=== PATIENT | female | born 1955 | race Caucasian/White ===

== ENCOUNTER 2020-05-12 08:15 | Outpatient (CLI) | payer MEDICARE, SELFPAY ==
--- NOTE | ~2020-05-12 | MM_ITS ---
EXAMINATION: MM screening [facility] BI w [place] HISTORY: Screening mammogram TECHNIQUE: Craniocaudal and mediolateral oblique 3-D tomosynthesis images were obtained and synthetic 2-D images were generated. CAD analysis was submitted and interpreted. COMPARISON: 05/09/2019, 04/27/2018, 10/29/2015 BREAST PARENCHYMAL COMPOSITION: There are scattered areas of fibroglandular density. FINDINGS: Scattered benign-appearing calcifications are present. There is no evidence of suspicious m ass, calcification, or architectural distortion to suggest malignancy in either breast. There has bee n no suspicious interval change. IMPRESSION: 1. No mammographic evidence of malignancy. 2. Recommend routine screening mammography in one year. BI-RADS Category 2: Benign finding(s). Reviewed, dictated and finalized at location A.
== END 2020-05-12 08:16 | disposition home or self-care (01) ==
PROVIDERS: PCP Family Medicine; Visit Provider Family Medicine
DX: Z12.31 Encounter for screening mammogram for malignant neoplasm of breast (principal)
CPT/HCPCS: 77063; 77067

== ENCOUNTER 2020-07-11 15:06 | Emergency (ER) | payer MEDICARE, SELFPAY ==
[2020-07-11 15:28] LABS: Add Urine Microscopic? YES; Appearance Urine Cloudy (Clear); Bilirubin Urine Negative (Negative); Blood Urine 3+ (Negative); Color Urine Yellow (Yellow); Glucose Urine UA Negative (Negative); Ketones Urine Negative (Negative); Leukocyte Esterase Ur 2+ LEU/UL (Negative); Nitrate Urine Positive (Negative); Protein Urine 2+ (Negative); pH Urine 7.5 (5.0-8.0)
[2020-07-11 15:30] VITALS: BP 157/84; PULSE 86; RESP 15; TEMP 36.9; O2SAT 99
[2020-07-11 15:41] LABS: Bacteria Urine 3+ /hpf; RBC Urine 51-75 /hpf (0-2); Squamous Epithelial Cell Urine None seen /hpf (Few); WBC Urine >75 /hpf (0-3)
--- NOTE | 2020-07-11 16:11 | ED.ABDPAIN ---
HPI - Abdominal Pain General Chief Complaint: Urogenital-Female Stated Complaint: UTI Source: patient and family Mode of arrival: ambulatory Limitations: no limitations History of Present Illness HPI narrative: Patient comes in due to dysuria for the past 6 hours, moderately severe, ongoing, not relieved by measures at home, not felt to be associated with anything. Pertinent past history: none Pain Consistency: intermittent Location: pelvis Quality: cramping Radiation: none Exacerbating factors: other (urination) Relieving factors: nothing Associated symptoms: denies other symptoms Related Data Allergies Allergy/AdvReac Type Severity Reaction Status Date / Time benzonatate [Tessalon Perles] Allergy Intermediate Unknown Verified 07/09/20 09:58 doxycycline Allergy Intermediate Unknown Verified 07/09/20 09:58 Sulfa (Sulfonamide Allergy Hives Verified 07/11/20 15:28 Antibiotics) Review of Systems Constitutional: Constitutional: Reports no additional constitutional complaints Eyes: Eyes: Reports no additional eye complaints ENT: Reports system reviewed and no additional complaints, except as documented Cardiovascular: Cardiovascular: Reports no additional cardiovascular complaints Respiratory: Respiratory: Reports no additional respiratory complaints Gastrointestinal: Gastrointestinal: Reports no additional gastrointestinal complaints Genitourinary: Genitourinary: Reports no additional female genitourinary complaints Musculoskeletal: Musculoskeletal: Reports no additional musculoskeletal complaints Integumentary/Breasts: Skin/Breast: Reports system reviewed and no additional complaints, except as docu Neurologic: Reports system reviewed and no additional complaints, except as documented Psychiatric: Psychiatric: Reports no additional psychiatric complaints Endocrine: Endocrine: Reports no additional endocrine complaints Hematologic/Lymphatic: Hematologic/Lymphatic: Reports no additional hematologic/lymphatic complaints Allergic/Immunologic: Allergic/Immunologic: Reports no additional allergic/immunologic complaints [facility] Past Medical History Medical History Abdominal pain Community acquired bacterial pneumonia Vertigo Surgical History Surgical History History of lumbar laminectomy (~02/2019) History of total right knee replacement (TKR) (~01/2013) January 2013 Family History Family History Mother Family history of diabetes mellitus in first degree relative Family history of neuropathy Sibling Family history of lung cancer Father Family history of heart disease in male family member before age 55 Other Hypertension Social History Social History Smoking status: Never smoker Alcohol intake: never Substance use: never Additional living arrangements comments: She owns a duplex. Her parents live in the attached unit, and she is their primary infant caregiver. 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 Gender identity (if verbalized by the patient): Female Exam Const: General: healthy appearing and no acute distress HENMT: Head: normal to inspection General nose exam: Normal nares present Face and sinus: normal facial exam Eyes: Conjunctivae: conjunctivae normal Neck: Neck: normal visual inspection Chest: Chest palpation & inspection: normal inspection of the chest Resp: Effort & Inspection: normal respiratory effort Auscultation: clear to auscultation bilaterally Cardio: Rate: regular rate Rhythm: regular rhythm GI: GI Palp: Yes Soft to palpation Percussion: Yes other (mild tenderness over bladder) Back/Spine/Pelvis: Back: no CVA tenderness Skin: General skin exam: normal color Neuro: General: patient oriented x3 and moves all extremities
[2020-07-11] MEDS: PHENAZOPYRIDINE HCL 100 MG TABLET 200 MG PO (16:15)
[2020-07-11] MEDS: cefTRIAXone 1 GM VIAL IM (16:15)
[2020-07-11 16:30] VITALS: RESP 17
== END 2020-07-11 16:30 | disposition home or self-care (01) ==
PROVIDERS: Emergency Provider Emergency Medicine; PCP Family Medicine
DX: N39.0 Urinary tract infection, site not specified (principal)
CPT/HCPCS: 81001; 87077; 87086; 87088; 87186; 96372; 99283; A9270; J0696

== ENCOUNTER 2020-07-21 08:43 | Outpatient (CLI) | payer MEDICARE, SELFPAY | END 2020-07-21 08:44 | disposition home or self-care (01) | PROVIDERS: PCP Family Medicine; Visit Provider Family Medicine | DX: Z53.8 Procedure and treatment not carried out for other reasons (principal) | CPT/HCPCS: 99199 ==

== ENCOUNTER 2021-02-09 15:00 | Outpatient (CLI) | payer MEDICARE, SELFPAY ==
--- NOTE | 2021-02-09 15:20 | ECG_ITS ---
Measurements Intervals Sullivan Rate: 60 P: 43 CO: 163 QRS: -20 QRSD: 93 T: 34 QT: 397 QTc: 400 Interpretive Statements SINUS RHYTHM CANNOT RULE OUT SEPTAL INFARCT, AGE INDETERMINATE ABNORMAL ECG Electronically Signed On 02-09-2021 17:06:12 CDT by Roberto Elise D.O.
== END 2021-02-09 15:01 | disposition home or self-care (01) ==
PROVIDERS: PCP Family Medicine; Visit Provider Internal Medicine Cardiovascular Disease
DX: R94.31 Abnormal electrocardiogram [ECG] [EKG] (principal)
CPT/HCPCS: 93005

== ENCOUNTER 2021-02-27 15:41 | Outpatient (CLI) | payer MEDICARE, SELFPAY ==
--- NOTE | ~2021-02-27 | XR_ITS ---
EXAMINATION: XR knee LT 3V DATE: 02/27/2021 16:47 INDICATION: Left knee pain. TECHNIQUE: 3 views of left knee were obtained. COMPARISON: None. FINDINGS: Bone alignment is normal. No fracture. There is mild osteoarthritis of medial and patellofe moral compartments. No knee joint effusion. IMPRESSION: 1. Mild left knee osteoarthritis. Reviewed, dictated and finalized at location A.
--- NOTE | ~2021-02-27 | US_ITS ---
EXAMINATION: US venous doppler [facility] DATE: 02/27/2021 16:01 INDICATION: Left lower limb pain TECHNIQUE: Pompa scale images without and with compression and Doppler images of the left lower extrem ity veins were obtained. COMPARISON: None FINDINGS: The left common femoral vein, profunda femoral vein, femoral vein, popliteal vein, peroneal trunk, posterior tibial veins, and greater saphenous vein are patent. IMPRESSION: 1. Patent left lower extremity veins. No evidence of deep venous thrombosis. Reviewed, dictated and finalized at location B.
== END 2021-02-27 15:42 | disposition home or self-care (01) ==
PROVIDERS: PCP Family Medicine; Visit Provider Family Medicine
DX: M79.605 Pain in left leg (principal)
CPT/HCPCS: 73562; 93971

== ENCOUNTER 2021-05-14 07:44 | Outpatient (CLI) | payer MEDICARE, SELFPAY ==
--- NOTE | ~2021-05-14 | MM_ITS ---
EXAMINATION: MM screening [facility] BI w [place] HISTORY: Screening mammogram TECHNIQUE: Craniocaudal and mediolateral oblique 3-D tomosynthesis images were obtained and synthetic 2-D images were generated. CAD analysis was submitted and interpreted. COMPARISON: 05/12/2020, 05/09/2019, 04/27/2018 bilateral digital screening mammogram examinations BREAST PARENCHYMAL COMPOSITION: There are scattered areas of fibroglandular density. FINDINGS: Multiple scattered bilateral benign microcalcifications are again noted. There is no eviden ce of suspicious mass, calcification, or architectural distortion to suggest malignancy in either bethanie ast. There has been no suspicious interval change. IMPRESSION: 1. No mammographic evidence of malignancy. 2. Recommend routine screening mammography in one year. BI-RADS Category 2: Benign finding(s). Reviewed, dictated and finalized at location A.
== END 2021-05-14 07:45 | disposition home or self-care (01) ==
LOC: CHSIMG 07:45
PROVIDERS: PCP Family Medicine; Visit Provider Family Medicine
DX: Z12.31 Encounter for screening mammogram for malignant neoplasm of breast (principal)
CPT/HCPCS: 77063; 77067

== ENCOUNTER 2022-05-19 08:34 | Outpatient (CLI) | payer MEDICARE, SELFPAY ==
--- NOTE | ~2022-05-19 | MM_ITS ---
EXAMINATION: MM screening [facility] w [place] HISTORY: Screening TECHNIQUE: Craniocaudal and mediolateral oblique 3-D tomosynthesis images were obtained and synthetic 2-D images were generated. CAD analysis was submitted and interpreted. COMPARISON: Comparison to multiple prior studies sequentially, with oldest reviewed study dated 02/2014. BREAST PARENCHYMAL COMPOSITION: There are scattered areas of fibroglandular density. FINDINGS: There is asymmetry of the left breast consistent with previous lumpectomy and radiation the rapy. There is no evidence of new suspicious mass, calcification, or architectural distortion to sugg est malignancy in either breast. There has been no suspicious interval change. IMPRESSION: 1. No mammographic evidence of malignancy. 2. Recommend routine screening mammography in one year. BI-RADS Category 2: Benign finding(s). Reviewed, dictated and finalized at location A.
== END 2022-05-19 08:35 | disposition home or self-care (01) ==
LOC: CHSIMG 08:35
PROVIDERS: PCP Family Medicine; Visit Provider Family Medicine
DX: Z12.31 Encounter for screening mammogram for malignant neoplasm of breast (principal)
CPT/HCPCS: 77063; 77067

== ENCOUNTER 2022-07-05 15:32 | Outpatient (CLI) | payer MEDICARE, SELFPAY ==
--- NOTE | ~2022-07-05 | XR_ITS ---
XR chest 2V DATE: 07/05/2022 15:46 INDICATION: Cough, upper back pain TECHNIQUE: PA and lateral views COMPARISON: None FINDINGS: Normal heart size. No hilar or mediastinal enlargement. There is minimal focal infiltrate or atelectasis at the right upper lobe abutting the minor fissure. There is a calcified granuloma at the left lung base. The lungs are moderately hyperinflated but otherwise clear of infiltrate or consolidation. No pleural effusion or pneumothorax. No pulmonary vascular congestion. There is diffuse osteopenia. There is thoracic dextroscoliosis and degenerative change of the cervic al and thoracic and lumbar spine. IMPRESSION: Minimal infiltrate or atelectasis, anterior segment, right upper lobe Reviewed, dictated and finalized at location A. CLOSER IMPRESSION: Minimal infiltrate or atelectasis, anterior segment, right upper lo be
== END 2022-07-05 15:33 | disposition home or self-care (01) ==
LOC: CHSIMG 15:34
PROVIDERS: PCP Family Medicine; Visit Provider Nurse Practitioner Family
DX: R05.9 Cough, unspecified (principal); R91.8 Other nonspecific abnormal finding of lung field
CPT/HCPCS: 71046

== ENCOUNTER 2022-07-21 09:55 | Outpatient (CLI) | payer MEDICARE, SELFPAY ==
[2022-07-21 10:45] LABS: Alanine Aminotransferase 18 U/L (14-59); Albumin Level 3.2 g/dL (3.4-5.0); Alkaline Phosphatase 93 U/L (46-116); Anion Gap 4 mmol/L (8-16); Aspartate Amino Transferase 14 U/L (15-37); Blood Urea Nitrogen 14 mg/dL (7-18); Calcium 8.8 mg/dL (8.5-10.1); Carbon Dioxide 33 mmol/L (21-32); Chloride 105 mmol/L (98-108); Estimated Glomerular Filt Rate 49; Glucose 114 mg/dL (70-99); Osmolality Calculated 295 mOsm/kg (285-295); Potassium 3.7 mmol/L (3.5-5.1); Sodium 142 mmol/L (136-145); Total Protein 6.4 g/dL (6.4-8.2)
[2022-07-21 11:06] LABS: Hematocrit 40.9 % (35.0-42.0); Hemoglobin 13.2 g/dL (11.7-13.8); Mean Corpuscular HGB Conc 32.3 g/dL (32.0-36.0); Mean Corpuscular Hemoglobin 28.9 pg (27.0-31.0); Mean Corpuscular Volume 89.7 fL (78.0-102.0); Mean Platelet Volume 9.9 fl (9.2-11.8); Platelet Count Result 341 K/mm3 (150-420); Red Blood Count 4.56 M/mm3 (4.20-5.40); Red Cell Distribution Width 12.8 % (11.6-14.4); White Blood Count 9.2 K/mm3 (4.8-10.8)
== END 2022-07-21 09:56 | disposition home or self-care (01) ==
LOC: CHSLAB 09:57
PROVIDERS: PCP Family Medicine; Visit Provider Family Medicine
DX: J06.9 Acute upper respiratory infection, unspecified (principal)
CPT/HCPCS: 36415; 80053; 85027

== ENCOUNTER 2022-11-22 10:32 | Outpatient (CLI) | payer MEDICARE, SELFPAY ==
--- NOTE | ~2022-11-22 | DEXA_ITS ---
Bone Density Report Name: SURJIT TAPIA Age: 67 Sex: Female Ethnicity: White Date of : 1955 Indication: postmenopausal; screening for osteoporosis; height loss; Referring Provider: Kolby Martines Study: Bone densitometry was performed. Exam Date: November 22, 2022 Accession number: [id number] Bone Density: Region BMD T-score Z-score Classification AP Spine(L1-L4) 0.747 -2.7 -0.7 Osteoporosis Femoral Neck (Left) 0.843 -0.1 1.7 Normal Total Hip (Left) 0.852 -0.7 0.7 Normal Femoral Neck (Right) 0.671 -1.6 0.1 Osteopenia Total Hip (Right) 0.846 -0.8 0.7 Normal Femoral Neck Mean 0.757 -0.8 0.9 Normal Total Hip Mean 0.849 -0.8 0.7 Normal World Health Organization criteria for BMD impression classify patients as: Normal (T-score at or above -1.0), Osteopenia (T-score between -1.0 and -2.5), or Osteoporosis (T-score at or below -2.5). 10-year Fracture Risk: FRAX not reported because: Some T-score for Spine Total or Hip Total or Femoral Neck at or below -2.5 Clinical Information Provided by Patient: Has used the following medications: Fosamax (i.e. alendronate), Vitamin D, multivitiman Patient maximum height was 64 Menopause Age: 48 No regular weight bearing exercise Drinks caffeinated beverages Onset of menses at age 10 Number of children 1 Impression: The patient has osteoporosis, based on the Total Spine T-score. Discussion: INCREASED RISK OF FRACTURE. BONE DENSITY IS UNDESIRABLY LOW AT ONE OR MORE SKELETAL SITES, CONSISTENT WITH POSTMENOPAUSAL OSTEOPOROSIS. This patient's lowest T-score meets the World Health Organization's (WHO) criteria for osteoporosis at one or more sites (T-score -2.5 or below). In untreated patients, the risk of osteoporotic fracture increases approximately two-fold for each 1.0 SD decrease in T-score. Low bone density is not the only risk factor for fracture; also consider factors such as patient's age, frailty or poor health, risk of falling, risk of injury, previous osteoporotic fracture, family history of osteoporosis, cigarette smoking, low body weight, etc. Not everyone with low bone mineral density has osteoporosis; osteomalacia and other metabolic bone disorders should also be considered. Patients who have osteoporosis should be evaluated for specific diseases and conditions (secondary causes) that may cause or contribute to bone loss. The [place] Association of Clinical Endocrinologists (AACE) and National Osteoporosis Foundation (NOF) recommend pharmacologic intervention for all postmenopausal women whose T-score is in this range. The patient should follow a healthful lifestyle (good nutrition with adequate calcium and vitamin D, and appropriate weight-bearing exercise). Follow-Up: Consider a repeat BMD and Vertebral Fracture
== END 2022-11-22 10:33 | disposition home or self-care (01) ==
LOC: CHSIMG 10:35
PROVIDERS: PCP Family Medicine; Visit Provider Family Medicine
DX: Z78.0 Asymptomatic menopausal state (principal); M81.0 Age-related osteoporosis without current pathological fracture; M85.851 Other specified disorders of bone density and structure, right thigh
CPT/HCPCS: 77080

== ENCOUNTER 2022-12-22 07:05 | Outpatient (CLI) | payer MEDICARE, SELFPAY ==
[2022-12-22 07:59] LABS: Alanine Aminotransferase 21 U/L (14-59); Albumin Level 3.6 g/dL (3.4-5.0); Alkaline Phosphatase 91 U/L (46-116); Anion Gap 9 mmol/L (8-16); Aspartate Amino Transferase 18 U/L (15-37); Bilirubin,Total 1.5 mg/dL (0.00-1.00); Blood Urea Nitrogen 8 mg/dL (7-18); Calcium 8.9 mg/dL (8.5-10.1); Carbon Dioxide 30 mmol/L (21-32); Chloride 103 mmol/L (98-108); Estimated Glomerular Filt Rate > 60; Glucose 114 mg/dL (70-99); Osmolality Calculated 293 mOsm/kg (285-295); Potassium 3.5 mmol/L (3.5-5.1); Sodium 142 mmol/L (136-145); Total Protein 6.6 g/dL (6.4-8.2)
== END 2022-12-22 07:06 | disposition home or self-care (01) ==
LOC: CHSLAB 07:07
PROVIDERS: PCP Family Medicine; Visit Provider Nurse Practitioner Family
DX: M25.559 Pain in unspecified hip (principal)
CPT/HCPCS: 36415; 80053

== ENCOUNTER 2022-12-25 06:56 | Outpatient (CLI) | payer MEDICARE, SELFPAY ==
--- NOTE | ~2022-12-25 | MR_ITS ---
EXAMINATION: MR femur RT wo/w con DATE: 12/25/2022 09:20 INDICATION: Right lateral posterior buttock pain and right thigh pain. TECHNIQUE: Magnetic resonance imaging (MRI) of the right femur was performed without and with 14 mL M ultiHance intravenous contrast. COMPARISON: None. FINDINGS: Bone alignment is normal. No fracture. Bone marrow signal intensity is normal. The musculat ure is normal. The neurovascular bundles are normal. There is no abnormal mass. IMPRESSION: 1. Normal right thigh. Reviewed, dictated and finalized at location A. IMPRESSION: 1. Normal right thigh.
--- NOTE | ~2022-12-25 | MR_ITS ---
EXAMINATION: MR hip RT wo/w con DATE: 12/25/2022 09:17 INDICATION: Right lateral posterior buttock pain. TECHNIQUE: Magnetic resonance imaging (MRI) of the right hip was performed without and with 14 mL Mul tiHance intravenous contrast. COMPARISON: CT abdomen and pelvis 06/03/2016 FINDINGS: Bone alignment is normal. No fracture. The hip joints demonstrate tiny osteophytes. Small field-of-vi ew images of right hip have low signal, and the cartilage is not well evaluated. There is moderate ri ght gluteus minimus and gluteus medius tendinopathy. The left gluteus numbness and gluteus medius ten dons are normal. There is mild tendinopathy of the hamstring origins bilaterally. The iliopsoas tendo ns are normal. There is moderate right and mild left trochanteric bursitis. IMPRESSION: 1. Moderate tendinopathy of right gluteus minimus and gluteus medius tendons. 2. Moderate right-sided trochanteric bursitis and mild left-sided trochanteric bursitis. Reviewed, dictated and finalized at location A.
== END 2022-12-25 06:57 | disposition home or self-care (01) ==
LOC: CHSIMG 06:58
PROVIDERS: PCP Family Medicine; Visit Provider Nurse Practitioner Family
DX: M25.559 Pain in unspecified hip (principal); M71.551 Other bursitis, not elsewhere classified, right hip
CPT/HCPCS: 73720; 73723; A9577

== ENCOUNTER 2023-01-03 13:21 | Outpatient (RCR) | payer MEDICARE, SELFPAY ==
--- NOTE | 2023-01-03 13:50 | PTOPEVAL1 ---
Assessment and note entered by Rylan Ward Evaluation Information Assessment Status Evaluation Diagnosis bilateral trochanteric bursitis Onset 10/30/22 Subjective Information Pt. reports that she began noticing right hip pain in mid October. 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 She describes pain in the area of the right greater trochanter and radiates down to her foot. She reports that she was doing PT at the chiropractors office in November. She reports that her pain had gotten worse with the initial therapy. She reports that she underwent MRI which revealed bursitis. She reports that pain has improved since decreasing her activity level. 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 she reports that pain is worst with sitting or laying down. she reports difficulty with sleeping on her side. 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 Reported Pain Level Pain Score 3: Self Report Assessment PT Clinical Summary Pt. is a 67 year old female who enters the clinic with bilateral trochanteric bursitis. She presents with pain, impaired postural awareness, impaired flexiblity, impaired gait and functional decline. Continued skilled PT is indicated in order to improve these areas to allow the pt. to be able to complete all IADL's with improved Plan of Care Interventions Electrical Stimulation,Gait Training,Hot Pack/Cold Pack,Manual Therapy,Mechanical Traction,Neuro Re- education,Patient/Caregiver Educati,Therapeutic Activities,Therapeutic Exercise Treatment Frequency and 2x/week x 8 visits Duration These treatments will address the objective and functional deficits as defined above. The patient will be advanced safely and appropriately in order for the patient to progress towards his/her prior level of function. Additional exercises will be introduced and as well as a comprehensive home exercise program upon discharge, if needed, ?to ensure carryover of functional gains achieved in the clinic. This treatment plan has been reviewed and agreement upon by the patient.
--- NOTE | 2023-01-03 13:50 | OPREHPOC ---
Outpatient Therapy Plan of Care This is a Multidisciplinary Plan of Care that may contain components documented by all disciplines (PT, OT, and ST.) PT Problem 1 PT Problem #1 Knowledge Deficit PT Goal 1 Goal Pt. will be independent with a HEP addressing strength and mobility Target Visit 2 PT Problem 2 PT Problem #2 Impaired Flexibility PT Goal 1 Goal Attain minimal restricition in regards to piriformis flexibility Target Visit 8 PT Problem 3 PT Problem #3 Impaired Functional Mobil PT Goal 1 Goal Pt. 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 Target Visit 8
--- NOTE | 2023-01-25 09:57 | PTOPPROGNS ---
Assessment and note entered by Jackie Stoll, PT Evaluation Information Assessment Status Progress Diagnosis bilateral trochanteric bursitis, R hip pain Onset 10/30/22 Subjective Information Lillie reports that overall her symptoms are starting to improve. She is noting less pain with laying on her side at night. She still notes catching and rubbing on the front and side of her hip when she is walking. She has been performing her exercises at home everyday and would like to reduce the frequency of her PT. Assessment PT Clinical Summary Lillie Marmolejo has completed 6 skilled PT visits for bilateral trochanteric bursitis and right hip pain. She is reporting a mild improvement overall in pain however, this has occurred after scaling exercises back. She initially was having increased pain after PT. She has been completing her HEP daily and would like to reduce the frequency of her PT. She is reporting less pain at night when she is laying on her side but she still gets catching in the right anteriolateral hip when walking. 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 She objectively demonstrates ongoing weakness in right and left gluteus medius, gluteus aleksandra, and hip flexors as well as the abdominal muscles. She has tenderness at the right greater trochanter and piriformis muscles. She will continue to benefit from skilled PT however, she will be reduced in frequency to 1 time a week every 2 weeks to progress HEP. Plan of Care Interventions Electrical Stimulation,Hot Pack/Cold Pack,Manual Therapy,Patient/Caregiver Educati,Therapeutic Activities,Therapeutic Exercise PT Services Indicated Yes Treatment Frequency and 1 time a week every 2 weeks for 4 more visits Duration These treatments will address the objective and functional deficits as defined above. The patient will be advanced safely and appropriately in order for the patient to progress towards his/her prior level of function. Additional exercises will be introduced and as well as a comprehensive home exercise program upon discharge, if needed, ?to ensure carryover of functional gains achieved in the clinic. This treatment plan has been reviewed and agreement upon by the patient.
== END 2023-02-08 20:00 | disposition home or self-care (01) ==
LOC: CHSPT 13:21
PROVIDERS: PCP Family Medicine; Visit Provider Nurse Practitioner Family
DX: M70.61 Trochanteric bursitis, right hip (principal); M70.62 Trochanteric bursitis, left hip
CPT/HCPCS: 97014; 97110; 97112; 97140; 97150; 97161; G0283

== ENCOUNTER 2023-02-21 13:15 | Outpatient (CLI) | payer MEDICARE, SELFPAY ==
--- NOTE | ~2023-02-21 | XR_ITS ---
EXAM: XR foot LT min 3V DATE: 02/21/2023 13:39 HISTORY: med, dorsal, plantar LT foot pain @ arch w/ swelling x1yr . COMPARISON: None available. FINDINGS: Decreased mineralization. No fracture or dislocation. No lytic or blastic lesion. Mild deg enerative change at the first MTP and tibiotalar joints. Moderate degenerative change at the talonavi cular articulation. Mild Achilles and moderate plantar enthesopathy No erosion or periosteal change. Soft tissues within normal limits. IMPRESSION: Polyarticular osteoarthritis of the left foot, moderate at the talonavicular articulation . Reviewed, dictated and finalized at location K. IMPRESSION: Polyarticular osteoarthritis of the left foot, moderate at the talo navicular articulation.
--- NOTE | ~2023-02-21 | XR_ITS ---
Left ankle Technique: AP, oblique, and lateral views were obtained. Clinical History: Pain Findings: No acute fracture or dislocation is seen. Osseous alignment is anatomic. Ankle mortise and other visualized joint spaces are preserved. Plantar calcaneal spur noted. Soft tissues are otherwise unremarkable. Impression: Plantar calcaneal spur, otherwise unremarkable exam. Reviewed, dictated and finalized at location . Impression: Plantar calcaneal spur, otherwise unremarkable exam.
== END 2023-02-21 13:16 | disposition home or self-care (01) ==
LOC: CHSIMG 13:16
PROVIDERS: PCP Family Medicine; Visit Provider Family Medicine
DX: M77.32 Calcaneal spur, left foot (principal); M25.572 Pain in left ankle and joints of left foot; M79.672 Pain in left foot; M19.072 Primary osteoarthritis, left ankle and foot
CPT/HCPCS: 73610; 73630

== ENCOUNTER 2023-06-01 08:50 | Outpatient (CLI) | payer MEDICARE, SELFPAY ==
--- NOTE | ~2023-06-01 | MM_ITS ---
EXAMINATION: MM screening [facility] BI w [place] HISTORY: Screening mammogram TECHNIQUE: Craniocaudal and mediolateral oblique 3-D tomosynthesis images were obtained and synthetic 2-D images were generated. CAD analysis was submitted and interpreted. COMPARISON: 05/19/2022, 05/14/2021, 05/12/2020 BREAST PARENCHYMAL COMPOSITION: There are scattered areas of fibroglandular density. FINDINGS: No suspicious mass, calcification, or architectural distortion are identified in either bethanie ast to suggest malignancy. There has been no suspicious interval change. IMPRESSION: 1. No mammographic evidence of malignancy. 2. Recommend routine screening mammography in one year. BI-RADS Category 1: Negative Reviewed, dictated and finalized at location A. 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
== END 2023-06-01 08:51 | disposition home or self-care (01) ==
LOC: CHSIMG 08:51
PROVIDERS: PCP Family Medicine; Visit Provider Family Medicine
DX: Z12.31 Encounter for screening mammogram for malignant neoplasm of breast (principal)
CPT/HCPCS: 77063; 77067

== ENCOUNTER 2023-07-26 08:18 | Emergency (ER) | payer MEDICARE, SELFPAY ==
--- NOTE | ~2023-07-26 | CT_ITS ---
Noncontrast CT scan of the left shoulder CLINICAL HISTORY: Fracture TECHNIQUE: Axial noncontrast imaging of the left shoulder was performed. Sagittal and coronal reforma tted images were constructed. Dose reduction technique was used on this scan by utilizing automated e xposure control and iterative reconstruction technique. The dose-length product (DLP) was 131.91 mGy- cm. Findings: There is an acute, mildly fracture of the anteroinferior glenoid, compatible with osseous B ankart lesion related to recent dislocation injury. No dislocation seen currently. Probable small to moderate glenohumeral joint effusion. No proximal humeral fracture seen. AC joint is intact. Soft tissue structures are grossly unremarkable for noncontrast CT scan otherwise. Visualized left jared ng is clear. IMPRESSION: Acute, mildly displaced fracture the anterior inferior glenoid, compatible with osseous Bankhart lesi on, most likely related to recent anteroinferior dislocation injury. No dislocation seen currently. Consider follow-up MR to further assess for underlying soft tissue structure injuries, as indicated. Reviewed, dictated and finalized at location . 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 No dislocation seen currently. Consider follow-up MR to further assess for underlying soft tissue structure in juries, as indicated.
--- NOTE | ~2023-07-26 | XR_ITS ---
Left Shoulder Technique: AP and scapular Y views were obtained. Clinical History: Dislocation Findings: Questionable fracture at the inferior margin of the glenoid. No dislocation seen currently. No proximal humeral fracture seen. The glenohumeral and acromioclavicular joint spaces are preserved . Soft tissues are unremarkable. Impression: Possible fracture of the inferior margin of glenoid. Consider CT and/or MR to evaluate for fracture o r underlying soft tissue injuries, respectively, as indicated. No current dislocation or proximal humeral fracture seen. 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 Consider CT and/or MR to e valuate for fracture or underlying soft tissue injuries, respectively, as indic ated. No current dislocation or proximal humeral fracture seen.
[2023-07-26 08:20] VITALS: BP 161/81; PULSE 84; RESP 19; TEMP 36.7; O2SAT 99
[2023-07-26 08:26] VITALS: BP 161/81; PULSE 84; RESP 19; TEMP 36.7; O2SAT 99
--- NOTE | 2023-07-26 08:27 | ED.UPPEXIN ---
HPI - Extremity Injury (Upper) General Chief Complaint: Extremity Injury, Upper Stated Complaint: shoulder injury Time Seen by Provider: 07/26/23 08:22 Source: patient Mode of arrival: ambulatory Limitations: no limitations History of Present Illness HPI narrative: patient is a 67-year-old female with a fall on an outstretched left arm. This is a ground level fall. She did not injure anything except her left shoulder. She heard a pop sound and tried to maneuver the shoulder however she cannot move the shoulder any further than 20?. complaint: injury to: left and shoulder Onset (ago): minute(s) (30) Other Extremity Injury: Left: shoulder Other injuries: none Place: home Severity: moderate Severity scale (1-10): 5 Relieving factors: immobilization Exacerbating factors: movement of extremity Context: fall and injury Associated symptoms: denies other symptoms Related Data Home Medications Medication Instructions Recorded Confirmed No Home Medications 07/26/23 07/26/23 Allergies Allergy/AdvReac Type Severity Reaction Status Date / Time benzonatate [Tessalon Perles] Allergy Intermediate Unknown Verified 07/26/23 08:25 doxycycline Allergy Intermediate Unknown Verified 07/26/23 08:25 Sulfa (Sulfonamide Allergy Hives Verified 07/26/23 08:25 Antibiotics) Review of Systems Review of Systems: All systems reviewed & are unremarkable except as noted in HPI and below Constitutional: Constitutional: Reports no additional constitutional complaints Eyes: Eyes: Reports no additional eye complaints ENT: Reports system reviewed and no additional complaints, except as documented Cardiovascular: Cardiovascular: Reports no additional cardiovascular complaints Respiratory: Respiratory: Reports no additional respiratory complaints Gastrointestinal: Gastrointestinal: Reports no additional gastrointestinal complaints Genitourinary: Genitourinary: Reports no additional female genitourinary complaints Musculoskeletal: Musculoskeletal: Reports no additional musculoskeletal complaints Integumentary/Breasts: Skin/Breast: Reports system reviewed and no additional complaints, except as docu Neurologic: Reports system reviewed and no additional complaints, except as documented Psychiatric: Psychiatric: Reports no additional psychiatric complaints Endocrine: Endocrine: Reports no additional endocrine complaints Hematologic/Lymphatic: Hematologic/Lymphatic: Reports no additional hematologic/lymphatic complaints Allergic/Immunologic: Allergic/Immunologic: Reports no additional allergic/immunologic complaints PMFSH Past Medical History Medical History Vertigo Surgical History Surgical History History of lumbar laminectomy (~02/2019) History of total right knee replacement History of total right knee replacement (TKR) (~01/2013) January 2013 Family History Family History Mother Family history of diabetes mellitus in first degree relative Family history of neuropathy Sibling Family history of lung cancer Father Family history of heart disease in male family member before age 55 Other Hypertension Social History Social History Smoking status: Never smoker Alcohol intake: never Substance use: never Living arrangements: with family Additional living arrangements comments: She owns a duplex. 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 Gender identity (if verbalized by the patient): Female Sexual Orientation (if Verbalized by the Patient): Straight or Heterosexual Exam Const: General: healthy appearing Nutritional Appearance: well nourished Kumar
--- NOTE | 2023-07-26 09:38 | PC.NURSE ---
PT IS SITTING IN CHAIR TALKING WITH FRIEND AT THIS TIME. PT IS TO HAVE SHOULDER IMMOBILIZER PLACED. WILL CONTINUE TO MONITOR.
--- NOTE | 2023-07-26 09:48 | PC.NURSE ---
+PMS POST SHOULDER IMMOBILIZER APPLICATION
[2023-07-26 10:00] VITALS: BP 148/78; PULSE 80; RESP 18; O2SAT 99
== END 2023-07-26 10:00 | disposition home or self-care (01) ==
PROVIDERS: Emergency Provider Emergency Medicine; PCP Family Medicine
DX: S42.142A Displaced fracture of glenoid cavity of scapula, left shoulder, initial encounter for closed fracture (principal); W18.30XA Fall on same level, unspecified, initial encounter; Y92.009 Unspecified place in unspecified non-institutional (private) residence as the place of occurrence of the external cause
CPT/HCPCS: 73030; 73200; 87556; 99284; L3670

== ENCOUNTER 2023-08-15 08:19 | Outpatient (CLI) | payer MEDICARE, SELFPAY ==
--- NOTE | ~2023-08-15 | XR_ITS ---
XR shoulder LT min 2V DATE: 08/15/2023 08:42 INDICATION: Left shoulder pain TECHNIQUE: 5 views COMPARISON: 08/03/2023 left shoulder 07/26/2023 CT left shoulder 07/26/2023 left shoulder 05/02/2018 left shoulder FINDINGS: There is a mildly displaced fracture of the anteroinferior aspect of the glenoid process of the left scapula. She was not present on 05/02/2018. No other fracture or dislocation. No periosteal reaction or bone destruction. Osteopenia. Cervical spondylosis. Degenerative spurring of the thoracic spine. Aortic arch calcification. IMPRESSION: Anteroinferior left scapular glenoid rim fracture Reviewed, dictated and finalized at location B. 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
== END 2023-08-15 08:20 | disposition home or self-care (01) ==
LOC: CHSIMG 08:21
PROVIDERS: PCP Family Medicine; Visit Provider Orthopaedic Surgery
DX: M25.512 Pain in left shoulder (principal); S42.142A Displaced fracture of glenoid cavity of scapula, left shoulder, initial encounter for closed fracture
CPT/HCPCS: 73030

== ENCOUNTER 2023-08-29 08:16 | Outpatient (CLI) | payer MEDICARE, SELFPAY ==
--- NOTE | ~2023-08-29 | XR_ITS ---
Left Shoulder Technique: AP and scapular Y views were obtained. Clinical History: Glenoid fracture COMPARISON: 08/15/2023 Findings: Fracture of the glenoid is stable in appearance as compared to prior exam. There is mild AC joint degenerative change.. The glenohumeral joint is preserved. Soft tissues are unremarkable. Impression: Stable glenoid fracture. Reviewed, dictated and finalized at location . 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
== END 2023-08-29 08:17 | disposition home or self-care (01) ==
LOC: CHSIMG 08:19
PROVIDERS: PCP Family Medicine; Visit Provider Orthopaedic Surgery
DX: S42.142A Displaced fracture of glenoid cavity of scapula, left shoulder, initial encounter for closed fracture (principal)
CPT/HCPCS: 73030

== ENCOUNTER 2023-09-05 07:43 | Outpatient (RCR) | payer MEDICARE, SELFPAY ==
[2023-09-05 08:06] VITALS: BP_SYST 113
--- NOTE | 2023-09-05 09:19 | OPREHPOC ---
Outpatient Therapy Plan of Care This is a Multidisciplinary Plan of Care that may contain components documented by all disciplines (PT, OT, and ST.) PT Problem 1 PT Problem #1 Knowledge Deficit PT Goal 1 Goal Patient to demonstrate independence with HEP Target Visit 5 PT Problem 2 PT Problem #2 Pain PT Goal 1 Goal 1. patient to report highest pain at 2/10 2. patient to report ability to sleep with no disturbance due to L shoulder pain Target Visit 10 PT Problem 3 PT Problem #3 Impaired Range of Motion PT Goal 1 Goal 1. Patient to demonstrate 160 deg of L shoulder flexion to return to reaching into cabinets 2. Patient to demonstrate reach behind back to T10 in order to complete dressing tasks Target Visit 10 PT Problem 4 PT Problem #4 Impaired Strength PT Goal 1 Goal Patient to demonstrate 4+/5 L shoulder strength to return to completing house hold tasks at PLOF Target Visit 10 PT Problem 5 PT Problem #5 Impaired Functional Mobil PT Goal 1 Goal 1. Patient to decreased QuickDash by 20% 2. Patient to report no limitations with dressing or bathing due to L shoulder pain Target Visit 10
--- NOTE | 2023-09-05 09:19 | PTOPEVAL1 ---
Assessment and note entered by Nicole Suarez DPT Evaluation Information Assessment Status Evaluation Diagnosis R shoulder pain Onset 07/26/23 Subjective Information Patient reports on 07/26/23 she fell in her living room and reached out with her R arm and dislocated her R shoulder. She reports she was in a sling for 4 weeks and has been out of the sling for 2 weeks. She had been doing exercises given to her by the MD. She feels a deep ache in her shoulder and into the L shoulder blade. She has difficulty with dressing, reaching up and out, completing house hold tasks, and fixing her hair. 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 Reported Pain Level Pain Score 2: Self Report Assessment PT Clinical Summary Ms. Marmolejo is a 68 year old female who presents to PT with L shoulder pain following dislocation. Patient demonstrates decreased L shoulder strength and ROM limiting her ability to dress, bathe, complete house hold tasks and care for her mother. She would benefit from skilled PT to address impairments and return to PLOF. Plan of Care Interventions Electrical Stimulation,Hot Pack/Cold Pack,Manual Therapy,Neuro Re-education,Patient/Caregiver Educati,Therapeutic Activities,Therapeutic Exercise PT Services Indicated Yes Treatment Frequency and 3x weekly for 6 visits and 2x weekly for 4 visits Duration for a total of 10 visits These treatments will address the objective and functional deficits as defined above. The patient will be advanced safely and appropriately in order for the patient to progress towards his/her prior level of function. Additional exercises will be introduced and as well as a comprehensive home exercise program upon discharge, if needed, ?to ensure carryover of functional gains achieved in the clinic. This treatment plan has been reviewed and agreement upon by the patient.
--- NOTE | 2023-09-12 16:26 | PCPTNOTE ---
patient cancelled due to family emergency
[2023-10-04 07:45] VITALS: BP_SYST 170
--- NOTE | 2023-10-04 08:40 | OPREHPOC ---
Outpatient Therapy Plan of Care This is a Multidisciplinary Plan of Care that may contain components documented by all disciplines (PT, OT, and ST.) PT Problem 1 PT Problem #1 Knowledge Deficit PT Goal 1 Goal Patient to demonstrate independence with HEP Target Visit 5 Progress Met PT Problem 2 PT Problem #2 Pain PT Goal 1 Goal 1. patient to report highest pain at 2/10 2. patient to report ability to sleep with no disturbance due to L shoulder pain Target Visit 18 Comment continue PT Problem 3 PT Problem #3 Impaired Range of Motion PT Goal 1 Goal 1. Patient to demonstrate 160 deg of L shoulder flexion to return to reaching into cabinets 2. Patient to demonstrate reach behind back to bra line in order to complete dressing tasks Target Visit 18 Progress Partially Met Comment 1. met, 2. upgraded PT Problem 4 PT Problem #4 Impaired Strength PT Goal 1 Goal Patient to demonstrate 4+/5 L shoulder strength to return to completing house hold tasks at PLOF Target Visit 18 Comment continue PT Problem 5 PT Problem #5 Impaired Functional Mobil PT Goal 1 Goal 1. Patient to decreased QuickDash by 20% 2. Patient to report no limitations with dressing or bathing due to L shoulder pain Target Visit 18 Progress Partially Met Comment 2. met
--- NOTE | 2023-10-04 08:40 | PTOPREEVAL ---
Assessment and note entered by Nicole Diaz DPT Evaluation Information Assessment Status Re-evaluation Diagnosis R shoulder pain Onset 07/26/23 Subjective Information patient reports she has been able dress and bathe with greater ease. she reports she continues to have difficulty with donning her bra. she also reports any lifting is difficult. she reports she is independent with HEP Reported Pain Level Pain Score 1: Self Report Assessment PT Clinical Summary Mrs. Marmolejo has been seen for 10 visits of skilled PT with great progress towards goals. She demonstrates 165 deg of shoulder flexion and 3+/5 strength of the R shoulder in flexion and abduction. She reports improved ability to perform kitchen tasks and dress but continues to have difficulty with reaching behind her back and lifting objects for home chores. She will benefit from continued skilled PT to address remaining impairments and return to PLOF. Plan of Care Interventions Electrical Stimulation,Hot Pack/Cold Pack,Manual Therapy,Neuro Re-education,Patient/Caregiver Educati,Therapeutic Activities,Therapeutic Exercise PT Services Indicated Yes Treatment Frequency and continue 2x weekly for 8 visits Duration These treatments will address the objective and functional deficits as defined above. The patient will be advanced safely and appropriately in order for the patient to progress towards his/her prior level of function. Additional exercises will be introduced and as well as a comprehensive home exercise program upon discharge, if needed, ?to ensure carryover of functional gains achieved in the clinic. This treatment plan has been reviewed and agreement upon by the patient.
[2023-11-01 08:03] VITALS: BP_SYST 170
--- NOTE | 2023-11-01 08:54 | OPREHPOC ---
Outpatient Therapy Plan of Care This is a Multidisciplinary Plan of Care that may contain components documented by all disciplines (PT, OT, and ST.) PT Problem 1 PT Problem #1 Knowledge Deficit PT Goal 1 Goal Patient to demonstrate independence with HEP Target Visit 5 Progress Met PT Problem 2 PT Problem #2 Pain PT Goal 1 Goal 1. patient to report highest pain at 2/10 2. patient to report ability to sleep with no disturbance due to L shoulder pain Target Visit 18 Progress Met Comment continue PT Problem 3 PT Problem #3 Impaired Range of Motion PT Goal 1 Goal 1. Patient to demonstrate 160 deg of L shoulder flexion to return to reaching into cabinets 2. Patient to demonstrate reach behind back to bra line in order to complete dressing tasks Target Visit 18 Progress Met Comment . PT Problem 4 PT Problem #4 Impaired Strength PT Goal 1 Goal Patient to demonstrate 4+/5 L shoulder strength to return to completing house hold tasks at PLOF Target Visit 18 Progress Met Comment . PT Problem 5 PT Problem #5 Impaired Functional Mobil PT Goal 1 Goal 1. Patient to decreased QuickDash by 20% 2. Patient to report no limitations with dressing or bathing due to L shoulder pain Target Visit 18 Progress Met Comment .
--- NOTE | 2023-11-01 08:54 | PTOPDC ---
Assessment and note entered by Nicole Diaz DPT Evaluation Information Assessment Status Discharge Diagnosis R shoulder pain Onset 07/26/23 Subjective Information Patient reports no complaints of pain. She reports her shoulder is feeling good and has been dennis to return to all previous activities and functions. She reports independence with HEP Reported Pain Level Pain Score 0: Self Report Assessment PT Clinical Summary Mrs. Marmolejo attended 18 visits of skilled PT and met all set goals. She demonstrates >160 deg of L shoulder flexion and abduction and 4+/5 L shoulder strength. She has returned to dressing and all house hold tasks at [facility]. She reports she is independent with HEP and is appropriate for DC at this time. Plan of Care PT Services Indicated No
== END 2023-11-01 20:00 | disposition home or self-care (01) ==
LOC: CHSPT 07:43
PROVIDERS: Visit Provider Orthopaedic Surgery
DX: S43.005D Unspecified dislocation of left shoulder joint, subsequent encounter (principal); S42.142D Displaced fracture of glenoid cavity of scapula, left shoulder, subsequent encounter for fracture with routine healing
CPT/HCPCS: 97014; 97110; 97112; 97140; 97150; 97161; G0283

== ENCOUNTER 2023-09-26 08:35 | Outpatient (CLI) | payer MEDICARE, SELFPAY ==
--- NOTE | ~2023-09-26 | XR_ITS ---
EXAMINATION: XR shoulder LT min 2V DATE: 09/26/2023 08:58 INDICATION: Left shoulder pain. TECHNIQUE: 3 views of left shoulder were obtained. COMPARISON: Left shoulder radiographs 08/29/2023, CT 07/26/2023 FINDINGS: Bone alignment is normal. There is a fracture of anteroinferior glenoid with up to 5 mm dis placement. There is mild osteoarthritis of glenohumeral joint and moderate osteoarthritis of acromioc lavicular joint. Calcified hilar and mediastinal lymph nodes are consistent with old granulomatous di sease. IMPRESSION: 1. Unchanged fracture of anteroinferior glenoid. 2. Polyarticular osteoarthritis. Reviewed, dictated and finalized at location A.
== END 2023-09-26 08:36 | disposition home or self-care (01) ==
LOC: CHSIMG 08:44
PROVIDERS: PCP Family Medicine; Visit Provider Orthopaedic Surgery
DX: M25.512 Pain in left shoulder (principal); M19.012 Primary osteoarthritis, left shoulder
CPT/HCPCS: 73030

== ENCOUNTER 2023-11-07 08:21 | Outpatient (CLI) | payer MEDICARE, SELFPAY ==
--- NOTE | ~2023-11-07 | XR_ITS ---
XR shoulder LT min 2V 11/07/2023 08:46 Indication: Left shoulder dislocation Procedure: 4 views left shoulder Comparison: Comparison to multiple prior studies sequentially, with oldest reviewed study dated 08/03. Findings: There is mild polyarticular osteoarthritis of the left shoulder. Small loose body at the ac romioclavicular joint. There is a healing fracture of the glenoid process. Stable alignment. Impression: 1: Stable alignment of healing glenoid process fracture. Reviewed, dictated and finalized at location B. Impression: 1: Stable alignment of healing glenoid process fracture.
== END 2023-11-07 08:22 | disposition home or self-care (01) ==
LOC: CHSIMG 08:22
PROVIDERS: PCP Family Medicine; Visit Provider Orthopaedic Surgery
DX: S42.142D Displaced fracture of glenoid cavity of scapula, left shoulder, subsequent encounter for fracture with routine healing (principal); M25.512 Pain in left shoulder
CPT/HCPCS: 73030

== ENCOUNTER 2024-02-07 01:59 | Day surgery (SDC) | payer MEDICARE, SELFPAY ==
[2024-01-25 10:27] VITALS: BMI 25.7
[2024-02-07 06:26] VITALS: BP 175/72; PULSE 60; RESP 18; TEMP 36.2; O2SAT 100; BMI 25.2
[2024-02-07] MEDS: LACTATED RINGERS 1,000 ML 150 ML IV CONT (06:34)
--- NOTE | 2024-02-07 06:38 | WPDANESEPPF ---
Anes - Initial Pre Proc Eval Procedure: Operation Date: 02/07/24 07:30 Proposed Procedures p Screening Colonoscopy - Nixon Briceño DO Date/Time: 02/07/24 06:38 Surgeon: Nixon Briceño DO Pre Op Diagnosis: Screening for malignant neoplasm of colon Patient Data Age: 68 Gender: F Height: 1.63 m Weight: 66.7 kg Last Vital Signs Temp 36.2 C L 02/07/24 06:26 Pulse 60 02/07/24 06:26 Resp 18 02/07/24 06:26 BP 175/72 H 02/07/24 06:26 Pulse Ox 100 02/07/24 06:26 O2 Del Method Room Air 02/07/24 06:26 Allergies Allergy/AdvReac Type Severity Reaction Status Date / Time benzonatate [Tessalon Perles] Allergy Intermediate Unknown Verified 02/07/24 06:25 doxycycline Allergy Intermediate Unknown Verified 02/07/24 06:25 Sulfa (Sulfonamide Allergy Hives Verified 02/07/24 06:25 Antibiotics) hydrocodone AdvReac Nausea and Verified 02/07/24 06:25 Vomiting morphine AdvReac Nausea and Verified 02/07/24 06:25 Vomiting oxycodone AdvReac Nausea and Verified 02/07/24 06:25 Vomiting Home Medications Medication Instructions Recorded Confirmed Type sertraline 50 mg tablet 50 mg PO DAILY #90 tabs 11/08/23 02/07/24 Rx Patient hx anesthesia problems: none Family hx anesthesia problems: none Results Review: All pre-operative results and documents have been reviewed as part of the pre-operative evaluation. [facility] Past Medical History Medical History Dislocation of left shoulder joint Fracture of glenoid process of left scapula Vertigo Surgical History Surgical History History of lumbar laminectomy (~02/2019) History of total right knee replacement History of total right knee replacement (TKR) (~01/2013) January 2013 Family History Family History Mother Family history of diabetes mellitus in first degree relative Family history of neuropathy Sibling Family history of lung cancer Father Family history of heart disease in male family member before age 55 Other Hypertension Social History Social History Social History: coffee in A.M only Smoking status: Never smoker Alcohol intake: never Substance use: never Substance use type: does not use Living arrangements: with family Additional living arrangements comments: She owns a duplex. 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 Gender identity (if verbalized by the patient): Female Sexual Orientation (if Verbalized by the Patient): Straight or Heterosexual Spiritual care concerns: No Anes - Eval Final PreProcedure Day of Procedure 02/07/24 06:38 Patient weight: normal Heart: regular rate and rhythm Lungs: clear to auscultation Airway: Mallampati scale class II Neurological: alert and oriented Last oral intake: >/= 8 hours ASA classification: II Emergent: no Anesthetic plan: proceed Anesthesia type and monitoring: general GIVS and standard monitoring Results Review: All pre-operative results and documents have been reviewed as part of the pre-operative evaluation. Informed Consent: The patient's anesthetic plan and its attendant risks and benefits were discussed with the patient/family/POA. Questions were solicited and answers provided to the satisfaction of the patient/family/POA.
--- NOTE | 2024-02-07 07:30 | PM.IMHP ---
H&P: HPI History of Present Illness Date/Time: 02/07/24 07:30 Chief Complaint: Screening for colorectal cancer Narrative: this is a 68-year-old woman who presents for colonoscopy. She denies any hematochezia or melena. She denies any family history of colon cancer. Review of Systems Review of Systems: All systems reviewed & are unremarkable except as noted in HPI and below Constitutional: Constitutional: Denies chills, Denies fever(s), Denies headache(s) and Denies weight loss Eyes: Eyes: Denies change in vision ENT: Denies dizziness, Denies headache(s), Denies neck mass and Denies throat swelling Cardiovascular: Cardiovascular: Denies chest pain, Denies lightheadedness and Denies dyspnea Respiratory: Respiratory: Denies cough, Denies dyspnea and Denies wheezing Gastrointestinal: Gastrointestinal: Denies abdominal pain, Denies change in bowel habits, Denies nausea and Denies vomiting Genitourinary: Genitourinary: Denies hematuria and Denies dysuria Musculoskeletal: Musculoskeletal: Reports as per HPI Integumentary/Breasts: Skin/Breast: Reports as per HPI Neurologic: Denies dizziness and Denies headache(s) Allergic/Immunologic: Allergic/Immunologic: Denies throat swelling and Denies wheezing PMFSH Past Medical History Medical History Dislocation of left shoulder joint Fracture of glenoid process of left scapula Vertigo Surgical History Surgical History History of lumbar laminectomy (~02/2019) History of total right knee replacement History of total right knee replacement (TKR) (~01/2013) January 2013 Family History Family History Mother Family history of diabetes mellitus in first degree relative Family history of neuropathy Sibling Family history of lung cancer Father Family history of heart disease in male family member before age 55 Other Hypertension Social History Social History Social History: coffee in A.M only Smoking status: Never smoker Alcohol intake: never Substance use: never Substance use type: does not use Living arrangements: with family Additional living arrangements comments: She owns a duplex. Her parents live in the attached unit, and she is their primary patient care. 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 Gender identity (if verbalized by the patient): Female Sexual Orientation (if Verbalized by the Patient): Straight or Heterosexual Spiritual care concerns: No Meds Home Medications and Allergies Home Medications Medication Instructions Recorded Confirmed Type sertraline 50 mg tablet 50 mg PO DAILY #90 tabs 11/08/23 02/07/24 Rx Allergies Allergy/AdvReac Type Severity Reaction Status Date / Time benzonatate [Tessalon Perles] Allergy Intermediate Unknown Verified 02/07/24 06:25 doxycycline Allergy Intermediate Unknown Verified 02/07/24 06:25 Sulfa (Sulfonamide Allergy Hives Verified 02/07/24 06:25 Antibiotics) hydrocodone AdvReac Nausea and Verified 02/07/24 06:25 Vomiting morphine AdvReac Nausea and Verified 02/07/24 06:25 Vomiting oxycodone AdvReac Nausea and Verified 02/07/24 06:25 Vomiting Vital Signs Vital Signs - 24 hr 02/07/24 06:26 Temperature 36.2 C L Pulse Rate 60 Respiratory Rate 18 Blood Pressure 175/72 H Pulse Oximetry 100 Oxygen Delivery Room Air Exam Const: General: no acute distress and alert Orientation/consciousness: patient oriented x3 HENMT: Head: normocephalic and atraumatic Ears: hearing grossly normal bilaterally Face/Nose/Sinus: Normal nares present Mouth: Yes Normal oral and palatal mucosa present Eyes: Periorbital: periorbital findings normal Sclera: sclerae normal EOM: EOMs intact bilater
[2024-02-07 07:53] VITALS: BP 136/79; PULSE 64; RESP 17; O2SAT 100
[2024-02-07 08:03] VITALS: BP 154/63; PULSE 97; RESP 21; O2SAT 95
[2024-02-07 08:13] VITALS: BP 160/85; PULSE 58; RESP 21; O2SAT 100
== END 2024-02-07 08:26 | disposition home or self-care (01) ==
PROVIDERS: PCP Family Medicine; Visit Provider Surgery
PROC: 0DJD8ZZ Inspection of Lower Intestinal Tract, Via Natural or Artificial Opening Endoscopic (ICD-10-PCS; CPT 45378; principal; 2024-02-07 07:30)
DX: Z12.11 Encounter for screening for malignant neoplasm of colon (principal)
CPT/HCPCS: G0121; J7120

== ENCOUNTER 2024-06-06 14:25 | Outpatient (CLI) | payer MEDICARE, SELFPAY ==
--- NOTE | ~2024-06-06 | MM_ITS ---
EXAMINATION: MM screening [facility] BI [place] HISTORY: Screening mammogram TECHNIQUE: Craniocaudal and mediolateral oblique 3-D tomosynthesis images were obtained and synthetic 2-D images were generated. CAD analysis was submitted and interpreted. COMPARISON: 06/01/2023, 05/19/2022, 05/14/2021, 05/12/2020 BREAST PARENCHYMAL COMPOSITION:Not Dense. The breasts are almost entirely fatty FINDINGS: No suspicious mass, calcification, or architectural distortion are identified in either bethanie ast to suggest malignancy. There has been no suspicious interval change. IMPRESSION: No mammographic evidence of malignancy. Recommend routine screening mammography in one year. BI-RADS Category 1: Negative Reviewed, dictated and finalized at location . ACCOUNT COORDINATOR
== END 2024-06-06 14:26 | disposition home or self-care (01) ==
LOC: CHSIMG 14:25
PROVIDERS: PCP Nurse Practitioner Family; Visit Provider Family Medicine
DX: Z12.31 Encounter for screening mammogram for malignant neoplasm of breast (principal)
CPT/HCPCS: 77063; 77067

== ENCOUNTER 2024-09-05 09:41 | Outpatient (CLI) | payer MEDICARE, SELFPAY ==
--- OUTSIDE RECORDS SUMMARY | 2024-09-05 09:48 | XMS_ITS | Continuity of Care Document ---
Author Organization [facility] Address [address] [facility] [address] [place] [address] Phone Care Team Providers Care Ski Patroller Name Role Phone Isac Galicia MD, FACS Unavailable Unavailab le Allergies, Adverse Reactions, Alerts Substance Reaction Status Criticality No Known allergies Medications Medication Instructions Dosage Effective Dates (start - stop) Status Comments Naproxen Sodium 220 mg Tab take 1 tablet (220MG) by ORAL route every 12 hours as needed 220 MG - Active Procedures Procedure Date Office/outpatient Visit, [facility] Advance Directives Directive Yes / No [...] Providers Copied on Encounter Office/outpat ient Visit, [facility], [id number] [place] [address] [employer] [address], [place], [place], [id number], [place] tel:[phone] SEC Jak Garcia blurry vision (chief complaint) [employer] [address], [address], [place], [place], [address], [place]. tel:[phone] Referring Provider: Dilip Snyder OD A, [address] [facility] Eye [facility], [place], [address]. tel:[phone] [facility], [address] [employer] [address], [place], [place], [id number], [place] tel:[phone] SEC Jak Garcia No Information [phone], [address], [place], [place], [address], [place]. tel:[phone] Family History Family Member Type Diagnosis Age At Onset Problem (finding) Mother Problem (finding) diabetes melli tus in first degree relative Payers Payer name Insurance type Covered democrat ID Authoriza tion(s) No Information Social History Type Description Quantity Date Captured Comments Alcohol Use Details No Caffeine Use Details Tobacco Use Status No Information Smoking Status No Information Sex Female Chief Complaint And Reason For Visit From encounter dated '07/27/2010 15:00'. blurry vision (chief complaint) Reason For Referral Reason For Referral No [...]
--- OUTSIDE RECORDS SUMMARY | 2024-09-05 09:48 | XMS_ITS | Clinical Summary ---
Author Organization [facility] Address [address] [place] [address] Care Team Providers Care Skip Load Driver Name Role Phone Kolby Martines DO Primary Care Provider [phone] Allergies Active Allergy Reactions Criticality Noted Date Comments Benzonatate Unknown 07/21/2020 Doxycycline Hives 06/03/2020 Sulfa Antibiotics Hives 06/03/2020 Medications No known medications Active Problems Problem Noted Date Diagnosed Date Abnormal EKG 07/25/2020 Chest pain 07/25/2020 Immunizations Name Administration Dates Next Due Influenza Adult (Generic) 04/21/2020,04/26/2019 PFIZER COVID-19 (ORIGINAL FO RMULATION, PURPLE CAP) mRNA, LNP-S, PF, 30 MCG/0.3 ML DOSE 09/26/2020,09/05/2020 Pneumococcal (Pneumovax 23) 04/21/2020 Pneumococcal (Prevnar 13) 03/02/2019 Tdap (Generic) 03/02/2019 Family History Medical History Relation Comments Heart Disease Father Diabetes Mother Neuropathy Mother Lung Cancer Other Relation Status Comments Father Mother Other Social History Tobacco Use Types Packs/Day Years Used Date Smoking Tobacco: Never Smokeless Tobacco: Never Alcohol Use Standard Drinks/Week Comments Never 0 (1 standard drink = 0.6 oz pur e alcohol) AUDIT-C Answer Date Recorded Q1: How often do you have a drink containing alc ohol? Never 06/03/2020 Average Number of Drinks Not on file 020 Frequency of Binge Drinking Not on file 05/18 Comments No Sex and Gender Information Value Date Recorded Sex Assigned at Not on file Legal Sex Female 10:34 AM OFFICE SECRETARY Gender Identity Not on file Sexual Orientation Not on file Last Filed Vital Signs Vital Sign Reading Time Taken Comments Blood Pressure 120/78 01/12/2021 9:15 AM CDT Pulse 62 01/12/2021 7:13 AM CDT Temperature 36.4 C (97.6 F) 01/12/2021 9:15 AM CDT Respiratory Rate 18 01/12/2021 9:15 AM CDT Oxygen Saturation 99% 01/12/2021 9:15 AM CDT Inhaled Oxygen Concentration - - Weight 67.1 kg (148 lb) 01/12/2021 7:13 AM CDT Height 160 cm (5' 3 ) 01/12/2021 7:13 AM CDT Body Mass Index 26.22 01/12/2021 7:13 AM CDT Plan of Treatment Health Maintenance Due Date Last Done Comments Colorectal Cancer Screening Colonoscopy (10 Years) 1955 Hepatitis C 1971 Mammogram Screening 1993 Zoster Vaccines (1 of 2) 2003 Annual Medicare Wellness Visit 2018 Dexa Scan (General) 2018 COVID-19 Vaccine (3 - 2023-2 5 season) 2024 09/26/2020, 09/05/2020 Influenza Adult (#1) 2024 04/21/2020, 04/26/2019 RSV Immunization or 60+ Years (1 - 1-dose 75+ series) 2028 DTaP, Tdap and Td Vaccines ( 2 - Td or Tdap) 03/02/2029 03/02/2019 Pneumococcal Vaccine: 65+ Years Completed 04/21/2020, 03/02/2019 Meningococcal B Vaccine Aged Out No l onger eligible based on patient's age to complete this topic Meningococcal Vaccine Aged Out No lynda etta eligible based on patient's age to complete this topic RSV Immunizations Under 20 Months Aged Out No longer eligible b ased on patient's age to complete this topic Medical Devices Implanted Type Area Reception Interviewer Device Identifier Shelf Expiration Date Model / Serial / Lot Iol [employer] Zc[employer]o - [id number] Implanted:Qty: 1 on 06/09/2020 by James Mak MD at [facility] Lens Left: Eye [employer] 08/29/2023 ZCB00 / [id number] / Iol [employer] Zcb00 - [id number] Implanted:Qty: 1 on 01/12/2021 by James Mak MD at [facility] Lens [employer] [id number] 04/28/2024 [facility] / [id number] / Insurance [facility] Care Teams Skip Load Driver Relationship Specialty Start Date End Date Kolby Martines DO [address] [place] [address] PCP - General FAMILY PRACTICE 06/03/20
--- OUTSIDE RECORDS SUMMARY | 2024-09-05 09:48 | XMS_ITS | Encounter Summary ---
Author Organization [facility] Address [address] [place] [address] Care Team Providers Care Duplicate Maker Name Role Phone Kolby Martines DO Primary Care Provider [phone] Encounter Details Date Type Department Care Team (Late st Contact Info) Description 06/03/2020 Prep for Procedure [facility] Day [facility] [address] [place], [place] [id number] James Mak MD [address] [facility] [address] [place] [address] Social History Tobacco Use Types Packs/Day Years [...] Binge Drinking Not on file 05/18 Comments Unknown Sex and Gender Information Value Date Recorded Sex Assigned at Not on file Legal Sex Female 10:34 AM GIFT WRAPPER Gender Identity Not on file Sexual Orientation Not on file COVID-19 Exposure Response Date Recorded In the last month, have you been in contact with someone who was confirmed or suspected to have Coronavirus / COVID-19? No / Unsure 06/06/2020 8:43 AM GIFT WRAPPER documented as of this encounter Plan of Treatment Not on file documented as of this encounter Results * PRE-SURGICAL/PRE-PROCEDURE CORONAVIRUS (COVID 19) (06/06/2020 8:45 AM GIFT WRAPPER) CORONAVIRUS SARS COV 2 PCR (RESP) NOT DETECTED NOT DETECTED 06/08/2020 10:16 AM [email or web address] Comment: A Not Detected (negative) test result for this test means that SARS- CoV-2 RNA was not present in the specimen above the limit of detection. A negative result does not rule out the possibility of COVID-19 and should not be used as the sole basis for treatment or patient management decisions. If COVID-19 is still suspected, based on exposure history together with other clinical findings, re-testing should be considered in consultation with public health authorities. Laboratory test results should always be considered in the context of clinical observations and epidemiological data in making a final diagnosis and patient management decisions. Please review the Fact Sheets and FDA authorized labeling available for health care providers and patients using the following websites: https://www.[employer]/home/Covid-19/HCP/QuestIVD/fact- sheet.html https://www.[employer]/home/Covid-19/Patients/ QuestIVD/fact-sheet.html This test has been authorized by the FDA under an Emergency Use Authorization (EUA) for use by authorized laboratories. Due to the current public health emergency, [facility] is receiving a high volume of samples from a wide variety of swabs and media for COVID-19 testing. In order to serve patients during this public health crisis, samples from appropriate clinical sources are being tested. Negative test results derived from specimens received in non-commercially manufactured viral collection and transport media, or in media and sample collection kits not yet authorized by FDA for COVID-19 testing should be cautiously evaluated and the patient potentially subjected to extra precautions such as additional clinical monitoring, including collection of an additional specimen. Methodology: Nucleic Acid Amplification Test (NAAT) includes RT-PCR or TMA Additional information about COVID-19 can be found at the [facility] website: www.[facility].Zap[employer]ch/Covid19. Test performed at [facility] [address] [place] [address] Director: GENOVEVA SLOAN DO,MPH FIRST TEST YES 06/06/2020 8:43 AM [facility] EMPLOYED IN HEALTHCARE UNKNOWN 06/06/2020 8:43 AM [facility] SYMPTOMATIC DEFINED BY CDC NO 06/06/2020 8:43 AM GIFT WRAPPER [facility] DATE OF SYMPTOM ONSET UNKNOWN 06/06/2020 8:57 AM GIFT WRAPPER [facility] HOSPITALIZATION STATUS NO 06/06/2020 8:43 AM GIFT WRAPPER [facility] PATIENT IN ICU NO 06/06/2020 8:43 AM GIFT WRAPPER [facility] RESIDENT OF [facility] UNKNOWN 06/06/2020 8:43 AM GIFT WRAPPER [facility] UNKNOWN 06/06/2020 8:57 AM GIFT WRAPPER [facility] PATIENT'S RACE PATIENT DECLINED 05/19 8:43 AM GIFT WRAPPER [facility] ETHNICITY UNKNOWN 06/06/2020 8:43 AM GIFT WRAPPER [facility] SOURCE (QST) NASOPHARYNGEAL SWAB 06/06/2020 8:43 AM GIFT WRAPPER [facility] NASOPHARYNGEAL SWAB / Unknown 06/06/2020 8:45 AM GIFT WRAPPER us James Mak MD MICROBIOLOGY - GENERAL [facility] Final Result [facility] [address] [place] [address], [facility] [id number] [place] [address], documented in this encounter Visit Diagnoses Diagnosis Preop testing- Primary Preoperative examination, unspecified documented in this encounter Additional Health Concerns Infection Onset Date Last Indicated Resolved Time COVID-19 Rule Out 06/06/2020 06/06/2020 06/08/2020 10:16 AM GIFT WRAPPER documented as of this encounter Care Teams Duplicate Maker Relationship Specialty Start Date End Date Kolby Martines DO [address] [place] [address] PCP - General FAMILY PRACTICE 06/03/20 documented as of this encounter
== END 2024-09-05 09:42 | disposition home or self-care (01) ==
PROVIDERS: PCP Family Medicine; Visit Provider Family Medicine
DX: Z91.018 Allergy to other foods (principal); Z91.09 Other allergy status, other than to drugs and biological substances
CPT/HCPCS: 36415; 86003

== ENCOUNTER 2024-09-14 12:57 | Outpatient (CLI) | payer MEDICARE, SELFPAY | END 2024-09-14 12:58 | disposition home or self-care (01) | PROVIDERS: PCP Family Medicine; Visit Provider Family Medicine | DX: M79.642 Pain in left hand (principal); M19.042 Primary osteoarthritis, left hand | CPT/HCPCS: 73130 ==

== ENCOUNTER 2025-04-23 16:35 | Outpatient (NON) | payer MEDICARE, SELFPAY ==
--- OUTSIDE RECORDS SUMMARY | 2010-07-27 10:00 | XMS_ITS | Continuity of Care Document ---
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 Name Role Phone Isac Galicia MD, FACS Unavailable Unavailab le Allergies, Adverse Reactions, Alerts Substance Reaction Status Criticality No Known allergies Medications Medication Instructions Dosage Effective Dates (start - stop) Status Comments Naproxen Sodium 220 mg Tab take 1 tablet (220MG) by ORAL route every 12 hours as needed 220 MG - Active Procedures Procedure Date Office/outpatient Visit, [facility] Advance Directives Directive Yes / No Effective Date File Name Resuscitation Not Answered N/A N/A Life Support Not Answered N/A N/A Intubation Not Answered N/A N/A Antibiotics Not Answered N/A N/A IV Fluid Support Not Answered N/A N/A Tube Feed Not Answered N/A N/A Other Directive N/A N/A WARNING:The information contained in this section is historical and is provided for information only and does not constitute a legal document or any assurance that the information is still accurate. Please verify the information with the vo of the legal document before using it for clinical purposes. Encounters Encounter Description Practice Location Reason(s) For Visit Diagnoses Date Provider Providers Copied on Encounter Office/outpat ient Visit, [facility], [id number] [place] [address] [address], [place], [place], [id number], [place] tel:[phone] SEC Jka Garcia [facility] [address]au[id number] [place] [address], [address], [place], [place], [id number], [place]. tel:[phone] Referring Provider: Dilip Snyder OD A, [address] [facility], [place], [address]. tel:[phone] [facility], [address], [place], [place], [id number], [place] tel:[phone] SEC Jak Garcia No Information [phone] Grayson Chau. [address], [address], [place], [place], [id number], [place]. tel:[phone] Family History Family Member Type Diagnosis Age At Onset Problem (finding) Mother Problem (finding) diabetes melli tus in first degree relative Payers Payer name Insurance type Covered constitution party ID Authoriza tion(s) No Information Social History Type Description Quantity Date Captured Comments Alcohol Use Details No Caffeine Use Details Tobacco Use Status No Information Smoking Status No Information Sex Female Chief Complaint And Reason For Visit No Information Reason For Referral Reason For Referral No Information History Of Present Illness Encounter Date Complaint History Of Prese nt Illness No Information Functional Status Date Functional Assessmen t No Information Instructions Date Instruction Additional Infor tawana - letter dictated to Dr. Snyder- return 6 mos for f/u cat check. Related to Cataract, Cortical Cataract, Cortical, OD- incipient OS,vision affected OD-ASRVD discussed with pt, and pt aware of RPE changes. - Discussed cataract diagnosis with the patient. Discussed and reviewed treatment options for cataracts. Risks and benefits of surgical procedure were explained and understood. Will continue to observe condition and symptoms. Pt understands this is an elective procedure, and can proceed when desired. Pt also understands PCF and treatment after cataract surgery. Related to Cataract, Cortical Assessments Type Assessment Date No Information Patient Care Teams Name Effective Dates (start - stop) Status Members No Information
--- NOTE | 2025-04-23 | CY_PTH ---
PATIENT: Lillie Marmolejo LOC: [facility]#:[id number] AGE/SX: 69/F ROOM: RE04/23/[address]: Deanna Keene NP : 1955 BED: DIS: 04/23/2025 SPEC #: [id number] RECD: 04/23/25 16:48 STATUS: JOCELIN REQ #: [id number] MARIANA: 04/23/25 00:[address]: Deanna Keene DEPT: [facility] Cytology RECD BY: Basia Gibson MLT, (ASCP) Tissues: A - Pap Smear Procedures: Pap Smear
== END 2025-04-23 16:36 | disposition home or self-care (01) ==
LOC: CHSLAB 16:39
PROVIDERS: PCP Nurse Practitioner Family; Visit Provider Nurse Practitioner Family
DX: Z12.4 Encounter for screening for malignant neoplasm of cervix (principal); Z11.51 Encounter for screening for human papillomavirus (HPV); Z11.8 Encounter for screening for other infectious and parasitic diseases; Z11.3 Encounter for screening for infections with a predominantly sexual mode of transmission
CPT/HCPCS: 87491; 87591; 87624; 88175; G0145

== ENCOUNTER 2025-06-11 07:50 | Outpatient (CLI) | payer MEDICARE, SELFPAY ==
--- NOTE | ~2025-06-11 | MM_ITS ---
EXAMINATION: MM screening b[facility] BI w [place] HISTORY: Screening TECHNIQUE: Craniocaudal and mediolateral oblique 3-D tomosynthesis images were obtained and synthetic 2-D images were generated. CAD analysis was submitted and interpreted. COMPARISON: Comparison to multiple prior studies sequentially, with oldest reviewed study dated 05/09/2019. BREAST PARENCHYMAL COMPOSITION: Dense: The breasts are heterogeneously dense, which may obscure small masses FINDINGS: There is no evidence of suspicious mass, calcification, or architectural distortion to suggest malignancy in either breast. There has been no suspicious interval change. IMPRESSION: 1. No mammographic evidence of malignancy. 2. Recommend routine screening mammography in one year. BI-RADS Category 1: Negative Reviewed, dictated and finalized at location O. ER HEAD ASSISTANT WET PROCESS
--- OUTSIDE RECORDS SUMMARY | 2025-06-11 07:55 | XMS_ITS | Encounter Summary ---
Author Organization [facility] Address [facility] [place] [address] Care Team Providers Care Director On Air Name Role Phone Kolby Martines DO Primary Care Provider [phone] Encounter Details Date Type Department Care Team (Late st Contact Info) Description 06/03/2020 Prep for Procedure [facility] One Day Services [address] [place] [address] James Mak MD [address] [facility] [address] [address] Social History Tobacco Use Types Packs/Day Years [...] Information Value Date Recorded Sex Assigned at Female 05/02/2025 8:29 AM CDT Legal Sex Female 10:34 AM ASSISTANT IMPORT MANAGER Gender Identity Not on file Sexual Orientation Not on file COVID-19 Exposure Response Date Recorded In the last month, have you been in contact with someone who was confirmed or suspected to have Coronavirus / COVID-19? No / Unsure 06/06/2020 8:43 AM ASSISTANT IMPORT MANAGER documented as of this encounter Functional Status documented as of this encounter Plan of Treatment Not on file documented as of this encounter Results * PRE-SURGICAL/PRE-PROCEDURE CORONAVIRUS (COVID 19) (06/06/2020 8:45 AM ASSISTANT IMPORT MANAGER) Pathologist [facility] CORONAVIRUS SARS COV 2 PCR (RESP) NOT DETECTED NOT DETECTED 06/08/2020 10:16 AM [facility] Comment: A Not Detected (negative) test [...] providers and patients using the following websites: https://www.[facility]./home/Covid-19/HCP/QuestIVD/fact- sheet.html https://www.[facility].[employer]./home/Covid-19/Patients/ QuestIVD/fact-sheet.html This test has been authorized by the FDA under an Emergency Use Authorization (EUA) for use by authorized laboratories. Due to the current public health emergency, [facility] is receiving a high volume of samples [...] about COVID-19 can be found at the [facility] website: www.[employer]./Covid19. Test performed at [facility] [address] [place] [address] Director: GENOVEVA SLOAN DO,MPH FIRST TEST YES 06/06/2020 8:43 AM [facility] () [facility] EMPLOYED IN HEALTHCARE UNKNOWN 06/06/2020 8:43 AM ASSISTANT IMPORT MANAGER [facility] SYMPTOMATIC DEFINED BY CDC NO 06/06/2020 8:43 AM ASSISTANT IMPORT MANAGER [facility] DATE OF SYMPTOM ONSET UNKNOWN 06/06/2020 8:57 AM ASSISTANT IMPORT MANAGER [facility] HOSPITALIZATION STATUS NO 06/06/2020 8:43 AM ASSISTANT IMPORT MANAGER [facility] PATIENT IN ICU NO 06/06/2020 8:43 AM ASSISTANT IMPORT MANAGER [facility] RESIDENT OF [facility] UNKNOWN 06/06/2020 8:43 AM ASSISTANT IMPORT MANAGER [facility] UNKNOWN 06/06/2020 8:57 AM ASSISTANT IMPORT MANAGER [facility] PATIENT'S RACE PATIENT DECLINED 05/19 8:43 AM ASSISTANT IMPORT MANAGER [facility] ETHNICITY UNKNOWN 06/06/2020 8:43 AM ASSISTANT IMPORT MANAGER [facility] SOURCE (QST) NASOPHARYNGEAL SWAB 06/06/2020 8:43 AM ASSISTANT IMPORT MANAGER [facility] NASOPHARYNGEAL SWAB / Unknown 06/06/2020 8:45 AM ASSISTANT IMPORT MANAGER us James Mak MD MICROBIOLOGY - GENERAL [facility] Final Result [facility] [address] [place] [address], [facility] [id number] [place] [address], documented in this encounter Visit Diagnoses Diagnosis Preop testing- Primary Preoperative examination, unspecified documented in this encounter Additional Health Concerns Infection Onset Date Last Indicated Resolved Time COVID-19 Rule Out 06/06/2020 06/06/2020 06/08/2020 10:16 AM ASSISTANT IMPORT MANAGER documented as of this encounter Care Teams Director On Air Relationship Specialty Start Date End Date Kolby Martines DO [address] [place] [address] PCP - General FAMILY PRACTICE 06/03/20 documented as of this encounter
--- OUTSIDE RECORDS SUMMARY | 2025-06-11 07:55 | XMS_ITS | Clinical Summary ---
Author Organization [facility] Address [address] [place] [address] Care Team Providers Care Double Ending Machine Operator Name Role Phone Kolby Martines DO Primary Care Provider [phone] Allergies Active Allergy Reactions Criticality Noted Date Comments Bee Venom Unknown 11/15/2024 Benzonatate Unknown 07/21/2020 Doxycycline Hives 06/03/2020 Sulfa Antibiotics Hives 06/03/2020 Wasp Venom Protein Unknown 11/15/2024 Medications sertraline (ZOLOFT) 50 MG tablet Take 1 tablet (50 mg total) by mouth daily. 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 Overview (11/15/2024): Neural hearing loss, bilateral Subjective tinnitus 08/08/2012 Overview (11/15/2024): Subjective tinnitus Vestibular neuronitis 08/08/2012 Overview (11/15/2024): Vestibular neuronitis Lymphadenopathy 10/04/2011 Encounters Date Type Department Care Team Description 04/22/2025 8:30 AM CDT - 04/22/2025 11:59 PM CDT Hospital Encounter [facility] [address] [place] [address] Deanna Keene, CARMEN Discharge Disposition: Home or Self Care (Routine Discharge) from Last 3 Months Immunizations Immunization Administration Dates Next Due Influenza Adult (Generic) [...] AM CDT Legal Sex Female 10:34 AM STRIP FEEDER Gender Identity Not on file Sexual Orientation Not on file Last Filed Vital Signs Vital Sign Reading Time Taken Comments Blood Pressure 158/60 11/15/2024 2:39 PM CDT Pulse 63 11/15/2024 2:39 PM CDT Temperature 36.4 C (97.6 F) 01/12/2021 9:15 AM CDT Respiratory Rate 18 01/12/2021 9:15 AM CDT Oxygen Saturation 99% 01/12/2021 9:15 AM CDT Inhaled Oxygen Concentration - - Weight 69 kg (152 lb 3.2 oz) 11/15/2024 2:39 PM CDT Height 160 cm (5' 3) 11/15/2024 2:39 PM CDT Body Mass Index 26.96 11/15/2024 2:39 PM CDT Plan of Treatment Health Maintenance Due Date Last Done Comments Colorectal Cancer Screening Colonoscopy (10 Years) 1953 Hepatitis C 1971 Mammogram Screening 1993 Zoster Vaccines (1 of 2) 2003 Annual Medicare Wellness Visit 2018 Dexa Scan (General) 2018 COVID-19 Vaccine (3 - 2024-2 6 season) 2025 09/26/2020, 09/05/2020 Influenza Adult (#1) 2025 04/21/2020, 04/26/2019 RSV Immunization or 60+ Years (1 - 1-dose 75+ series) 2028 DTaP, Tdap and Td Vaccines ( 2 - Td or Tdap) 03/02/2029 03/02/2019 Pneumococcal Vaccine: 50+ Years Completed 04/21/2020, 03/02/2019 Hepatitis A Vaccines Aged Out No long er eligible based on patient's age to complete this topic Meningococcal B Vaccine Aged Out No l onger eligible based on patient's age to complete this topic Meningococcal Vaccine Aged Out No lynda et[place] eligible based on patient's age to complete this topic RSV Immunizations Under 20 Months Aged Out No longer eligible b ased on patient's age to complete this topic Medical Devices Implanted Type Area [employer] Supervisor Device Identifier Shelf Expiration Date Model / Serial / Lot Iol Twin Precision Zcboo - [id number] Implanted:Qty: 1 on 06/09/2020 by James Mak MD at [facility] Lens Left: Eye [employer] 08/29/2023 ZCB00 / [id number] / Iol Twin Precision Zcb00 - [id number] Implanted:Qty: 1 on 01/12/2021 by James Mak MD at [facility] Lens [employer] [id number] 04/28/2024 ZCB00 / [id number] / Procedures Procedure Name Priority Date/Time Associated Diagnosis Comments HC HPV AMP Routine 04/22/2025 8:00 AM CDT from Last 3 Months Results * HUMAN PAPILLOMAVIRUS, HIGH-RISK TYPES (04/22/2025 8:00 AM CDT) SPEC DESCRIPTION CERVIX 05/02/20 8:39 AM CDT [facility] HPV DNA HIGH RISK NEGATIVE NEGATIVE 05/03/2025 12:38 PM CDT [facility] Comment:SEE CYTOLOGY REPORT 04/22/2025 8:00 AM CDT Deanna Riley Yecenia RAIL SPLITTER PATHOLOGY/CYTOLOGY ORDERA BLES Final Result [facility] [address] [place] [address], [place] [phone] from Last 3 Months Insurance [employer] MEDICARE Care Teams Double Ending Machine Operator Relationship Specialty Start Date End Date Kolby Martines DO [address] [place] [address] PCP - General FAMILY PRACTICE 06/03/20
== END 2025-06-11 07:51 | disposition home or self-care (01) ==
LOC: CHSIMG 07:52
PROVIDERS: PCP Family Medicine; Visit Provider Family Medicine
DX: Z12.31 Encounter for screening mammogram for malignant neoplasm of breast (principal)
CPT/HCPCS: 77063; 77067

== ENCOUNTER 2025-06-15 15:38 | Emergency (ER) | payer MEDICARE, SELFPAY ==
--- NOTE | ~2025-06-15 | CT_ITS ---
EXAMINATION: CT shoulder RT wo con COMPARISON: None HISTORY: Fall, Rt. shoulder pain/ limited ROM TECHNIQUE: Axial images were obtained without IV contrast. Sagittal, coronal reconstruction images were obtained from the axial views. CT scan performed using dose optimization techniques including the following automated exposure control; adjustment of mA and/or kV; use of iterative reconstruction technique. Automatic exposure control was used to reduce radiation dose. Permanent radiation dose record is archived to PACS. FINDINGS: The acromioclavicular joint is intact. There is a slightly displaced comminuted fracture of the inferior bony glenoid. No dislocation. Moderate joint effusion noted. The remaining scapula appears intact. There are no rib fractures identified. No osteonecrosis. No intramuscular hemorrhage or subcutaneous fluid collection is identified. The visualized lungs appear unremarkable. IMPRESSION: Fracture of the bony glenoid detailed above. Moderate effusion. No dislocation. No osteonecrosis. Reviewed, dictated and finalized at location P. D NUTRITION ASSISTANT
--- NOTE | ~2025-06-15 | XR_ITS ---
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 shoulder pain/ limited ROM COMPARISON: No comparisons available. Findings: There is irregularity of the bony glenoid suspicious for nondisplaced fracture.On the transscapular view the Humeral head appears subluxed anteriorly. No significant degenerative changes. Soft tissues unremarkable. Impression: Fracture of the bony glenoid is suspected. CT recommended Reviewed, dictated and finalized at location P. ARD AIR CONTROLLER/AIR OFFICER Impression: Fracture of the bony glenoid is suspected. CT recommended
[2025-06-15 15:38] VITALS: BP 149/66; PULSE 72; RESP 16; TEMP 36.6; O2SAT 100
--- NOTE | 2025-06-15 15:46 | ED_ITS ---
HPI - Extremity Injury (Upper) General Chief Complaint: Extremity Injury, Upper Stated Complaint: right shoulder pain Time Seen by Provider: 06/15/25 15:45 Source: patient History of Present Illness HPI narrative: 69 years old white female came from home by private car with her complaining of right shoulder pain after ground level fall on the snow. Patient denies other injuries. Patient believed that she probably dislocated right shoulder and went back on its own. Related Data Allergies Allergy/AdvReac Type Severity Reaction Status Date / Time benzonatate (Tessalon Perles) Allergy Intermediate Unknown Verified 06/15/25 15:43 doxycycline Allergy Intermediate Unknown Verified 06/15/25 15:43 Sulfa (Sulfonamide Allergy Hives Verified 06/15/25 15:43 Antibiotics) hydrocodone AdvReac Nausea and Verified 06/15/25 15:43 Vomiting morphine AdvReac Nausea and Verified 06/15/25 15:43 Vomiting oxycodone AdvReac Nausea and Verified 06/15/25 15:43 Vomiting Review of Systems Review of Systems: All systems reviewed & are unremarkable except as noted in HPI and below PMFSH Past Medical History Medical History Dislocation of left shoulder joint Fracture of glenoid process of left scapula Vertigo Surgical History Surgical History History of total right knee replacement History of lumbar laminectomy (~02/2019) History of total right knee replacement (TKR) (~01/2013) January 2013 Family History Family History Mother Family history of diabetes mellitus in first degree relative Family history of neuropathy Sibling Family history of lung cancer Father Family history of heart disease in male family member before age 55 Other Hypertension Social History Social History Social History: coffee in A.M only Smoking status: Never smoker Alcohol intake: never Substance use: never Substance use type: does not use Living arrangements: with family Additional living arrangements comments: She owns a duplex. 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 Gender identity (if verbalized by the patient): Female Sexual Orientation (if Verbalized by the Patient): Straight or Heterosexual Spiritual care concerns: No Exam Narrative: General appearance: Well-developed, well-nourished Skin: Normal color Head: Normocephalic, nontraumatic Eyes: Clear conjunctiva ENT: Oropharynx normal, ears normal, nose normal Neck: Supple, nontender Chest and respiratory: Airway patent, no respiratory distress, no accessory muscle use Heart: Regular rate/rhythm Abdomen: Soft, nontender, no organomegaly, quiet bowel sounds Vascular: Normal peripheral pulses, normal capillary refill. Musculoskeletal: Diffuse tenderness right shoulder mainly laterally, limited range of motion because of pain, no swelling, no deformity, no bruises Neurologic: Alert and oriented ?3, SENIOR ANALYTIC CONSULTANT is normal as tested, no gross motor deficit Course Vital Signs Vital signs: Vital Signs Temperature 36.6 C 06/15/25 15:38 Pulse Rate 72 06/15/25 15:38 Respiratory Rate 16 06/15/25 15:38 Blood Pressure 149/66 H 06/15/25 15:38 Pulse Oximetry 100 06/15/25 15:38 Oxygen Delivery Room Air 06/15/25 15:38 Temperature 36.6 C 06/15/25 15:38 Pulse Rate 72 06/15/25 15:38 Respiratory Rate 16 06/15/25 15:38 Blood Pressure 149/66 H 06/15/25 15:38 Pulse Oximetry 100 06/15/25 15:38 Oxygen Delivery Room Air 06/15/25 15:38 MDM - Extremity Injury (Upper) MDM Narrative Medical decision making narrative: Right shoulder pain status post fall on ice Physical examination showing diffuse tenderness of the right shoulder laterally otherwise no deformity. X-ray of the right shoulder showed possible glenoid fracture CT scan of the right shoulder showed inferior [place] fracture Discharged on arm sling, follow-up with ortho, Tylenol, ibuprofen as needed, ice pack The pt was discharged to home.the pt,s condition upon discharge was fair,education was provided to the pt in reference to the final impression,discharge study results,treatment,prognosis and need for follow up . Differential Diagnosis Differential diagnosis: Likely dislocation of shoulder, fracture of humerus and fracture of clavicle Imaging Data Radiologist's impression: Impressions Shoulder X-Ray 06/15/25 16:03 Impression: Fracture of the bony glenoid is suspected. CT recommended Shoulder CT 06/15/25 16:33 IMPRESSION: Fracture of the bony glenoid detailed above. Moderate effusion. No dislocation. No osteonecrosis. Critical Care Time Critical Care Time Critical Care Time: No Discharge Plan Discharge Clinical Impression: Closed fracture of shoulder Patient Disposition: Home Condition: Stable Instructions: Arm Fracture in Adults (ED), How to Use a Sling (ED) Additional Instructions: Return if symptoms are worsening , call your family physician for appointment, take Tylenol, ibuprofen as as needed for aches and pain, continue home medications Sling Ice pack 20 minutes/hour for the next 24 hours. Patient Language: Uzbek Prescriptions: No Action sertraline 50 mg tablet See Rx Instructions .ROUTE .COMPLEX Qty: 90 1RF Dose Instruction: TAKE ONE TABLET BY MOUTH DAILY Rx Instructions: TAKE ONE TABLET BY MOUTH DAILY Follow-up/Referrals: Kolby Martines DO [Primary Care Provider, Family Practice] Nik Child MD [Physician, Orthopedics] - 06/19/25
[2025-06-15 16:55] VITALS: BP 149/66; PULSE 68; RESP 20; O2SAT 97
== END 2025-06-15 16:55 | disposition home or self-care (01) ==
PROVIDERS: Emergency Provider Emergency Medicine; PCP Family Medicine
DX: S42.91XA Fracture of right shoulder girdle, part unspecified, initial encounter for closed fracture (principal); W00.0XXA Fall on same level due to ice and snow, initial encounter
CPT/HCPCS: 73030; 73200; 99284; A4565